=== PATIENT | male | born 1970 | race Two or more races ===

== ENCOUNTER 2016-11-29 16:58 | Emergency (ER) | payer OTHER ==
[2016-11-29 17:04] VITALS: BP 131/86; PULSE 87; RESP 20; TEMP 98.5
--- NOTE | 2016-11-29 17:27 | ED ---
Recheck HPI - General Chief Complaint: Recheck/Abnormal Lab/Rx Stated Complaint: Med refill Time Seen by Provider: 11/29/16 17:18 Source: patient, RN notes reviewed Mode of arrival: ambulatory Limitations: no limitations - History of Present Illness Initial Comments: Patient 46-year-old male who presents emergency room today with chief complaint a medication refill. He does admit that he's recently due to the area and is waiting to see his family doctor does have an appointment later next week and also be seen [facility] the following week after that. States he needs medication for Cipro, Paxil, Xanax. States takes Paxil for depression and Xanax for anxiety. Patient states been out of Xanax longer since has not had a prescription. He denies any other complaints or symptoms. Patient denies any recent fever, chills, shortness of breath, chest pain, back pain, abdominal pain, nausea or vomiting, numbness or tingling, dysuria or hematuria, constipation or diarrhea, headaches or visual changes, or any other complaints. - Related Data Home Medications Medication Instructions Recorded Confirmed ALPRAZolam [Xanax] 0.5 mg PO HS 10/27/16 10/27/16 Albuterol Sulfate [Proair Hfa] 1 - 2 puff INHALATION RT-QID PRN 10/27/16 Budesonide/Formoterol Fumarate 2 puff INHALATION RT-BID 10/27/16 10/27/16 [Symbicort 160-4.5 Mcg Inhaler] Diclofenac Sodium [Voltaren] 75 mg PO BID 10/27/16 10/27/16 Montelukast [Singulair] 10 mg PO HS 10/27/16 10/27/16 PARoxetine [Paxil] 20 mg PO HS 10/27/16 10/27/16 tiZANidine [Zanaflex] 8 mg PO HS 10/27/16 10/27/16 Previous Rx's Medication Instructions Recorded Lisinopril [Prinivil] 20 mg PO HS #30 tablet 10/27/16 ALPRAZolam [Xanax] 0.5 mg PO TID PRN #40 tablet 11/29/16 Lisinopril [Zestril] 20 mg PO DAILY #14 tab 11/29/16 PARoxetine [Paxil] 20 mg PO DAILY #14 tab 11/29/16 Allergies Allergy/AdvReac Type Severity Reaction Status Date / Time No Known Allergies Allergy Verified 11/29/16 17:04 Review of Systems ROS Statement: Those systems with pertinent positive or pertinent negative responses have been documented in the HPI. ROS Other: All systems not noted in ROS Statement are negative. Past Medical History Past Medical History: Hypertension History of Any Multi-Drug Resistant Organisms: None Reported Past Surgical History: Cholecystectomy, Hernia Repair, Orthopedic Surgery Additional Past Surgical History / Comment(s): shoulder knee Past Psychological History: Depression Smoking Status: Never smoker Past Alcohol Use History: Occasional Past Drug Use History: None Reported General Exam - General Exam Comments Initial Comments: General: The patient is awake and alert, in no distress, and does not appear acutely ill. Eye: Pupils are equal, round and reactive to light, extra-ocular movements are intact. No nystagmus. There is normal conjunctiva bilaterally. No signs of icterus. Ears, nose, mouth and throat: There are moist mucous membranes and no oral lesions. Neck: The neck is supple, there is no tenderness or JVD. Cardiovascular: There is a regular rate and rhythm. No murmur, rub or gallop is appreciated. Respiratory: Lungs are clear to auscultation, respirations are non-labored, breath sounds are equal. No wheezes, stridor, rales, or rhonchi. Gastrointestinal: Soft, non-distended, non-tender abdomen without masses or organomegaly noted. There is no rebound or guarding present. No CVA tenderness. Bowel sounds are unremarkable. Musculoskeletal: Normal ROM, no tenderness. Strength 5/5. Sensation intact. Pulses equal bilaterally 2+. Neurological: A&O x 3. CN II-XII intact, There are no obvious motor or sensory deficits. Coordination appears grossly intact. Speech is normal. Skin: Skin is warm and dry and no rashes or lesions are noted. Psychiatric: Cooperative, appropriate mood & affect, normal judgment. Limitations: no limitations Course Vital Signs 11/29/16 17:02 Temperature 98.5 F Pulse Rate 87 Respiratory 20 Rate Blood Pressure 131/86 O2 Sat by Pulse 99 Oximetry Medical Decision Making - Medical Decision Making Please use medication as discussed. Please follow-up with family doctorfor further medications. Please return to emergency room if the symptoms increase or worsen or for any other concerns. Disposition Clinical Impression: Medication refill Disposition: HOME SELF-CARE Condition: Good Instructions: Medicine Refill (ED) Additional Instructions: Please follow-up family doctor as discussed for further medications. Prescriptions: ALPRAZolam [Xanax] 0.5 mg PO TID PRN #40 tablet PRN Reason: Anxiety Lisinopril [Zestril] 20 mg PO DAILY #14 tab PARoxetine [Paxil] 20 mg PO DAILY #14 tab Time of Disposition: 17:23
== END 2016-11-29 17:35 | disposition home or self-care (01) ==
LOC: EC 16:58
DX: Z76.0 Encounter for issue of repeat prescription (principal); F32.9 Major depressive disorder, single episode, unspecified; F41.9 Anxiety disorder, unspecified; Z79.1 Long term (current) use of non-steroidal anti-inflammatories (NSAID); Z79.51 Long term (current) use of inhaled steroids; Z79.899 Other long term (current) drug therapy
CPT/HCPCS: 99282

== ENCOUNTER → 2017-01-12 | Outpatient (CLI) | payer OTHER ==
--- NOTE | 2017-01-12 09:28 | CT ---
EXAMINATION TYPE: CT chest wo con DATE OF EXAM: 01/12/2017 COMPARISON: NONE HISTORY: Pulmonary nodule CT DLP: 824 mGycm. Automated Exposure Control for Dose Reduction was Utilized. TECHNIQUE: CT scan of the thorax is performed without IV contrast. FINDINGS: There is an 8.3 mm calcified pulmonary nodule in the posterior basal segment of the right l ower lobe best seen on image 45. No other parenchymal nodules are seen. There is no significant axillary adenopathy. There is some shotty mediastinal and aortopulmonary wind ow lymph nodes. There is calcified right hilar lymph nodes. There is no pleural or pericardial fluid. The heart is not enlarged. The gallbladder is been removed. Visualized upper abdominal structures are otherwise unremarkable. There is mild hypertrophic spondylosis in the lower dorsal spine. No bony destructive lesion is seen. IMPRESSION: 1. EVIDENCE OF OLD GRANULOMATOUS DISEASE. 2. MINIMAL DEGENERATIVE CHANGE WITHIN THE SPINE.
== END | disposition home or self-care (01) ==
LOC: RADCTMAIN 08:29
PROVIDERS: ATTEND Family Medicine
DX: R91.1 Solitary pulmonary nodule (principal)
CPT/HCPCS: 71250

== ENCOUNTER → 2017-04-18 | Outpatient (CLI) | payer OTHER ==
--- NOTE | 2017-04-18 08:12 | CT ---
EXAMINATION TYPE: CT brain wo con DATE OF EXAM: 04/18/2017 COMPARISON: NONE HISTORY: Encephalopathy CT DLP: 1192.32 mGycm. Automated Exposure Control for Dose Reduction was Utilized. TECHNIQUE: CT scan of the head is performed without contrast. FINDINGS: There is no acute intracranial hemorrhage, mass effect, or midline shift identified. The ventricles and sulci are within normal limits in size. No suspicious extra-axial fluid collection. S cant mucosal thickening is seen within the right ethmoid sinuses. The globes are intact and the remai tiera visualized sinuses are clear. IMPRESSION: No acute intracranial hemorrhage, mass effect, or midline shift is seen. If there is con cern for encephalopathy, MRI with and without contrast is recommended.
--- NOTE | 2017-04-18 08:18 | CT ---
EXAMINATION TYPE: CT abdomen pelvis wo con DATE OF EXAM: 04/18/2017 COMPARISON: NONE HISTORY: Diverticulitis CT DLP: 1132.08 mGycm Automated exposure control for dose reduction was used. TECHNIQUE: Helical acquisition of images was performed from the lung bases through the pelvis withou t intravenous contrast, this limits evaluation of the solid viscera.. FINDINGS: LUNG BASES: Benign calcified right lower lobe 6 mm granuloma is identified. Benign calcified right hi lar lymph node is also seen. Remainder the lung bases are unremarkable. LIVER/GB: Liver is diffusely hypoattenuated, most commonly related the mild hepatic steatosis. This l imits evaluation for hepatic masses. Cholecystectomy clips are seen within the gallbladder fossa. PANCREAS: No significant abnormality is seen. SPLEEN: The spleen is prominent in size in longitudinal dimension approaching criteria for spinal erika amna measuring 13.7 cm, however it is not enlarged in craniocaudal dimension measuring approximately 1 0 cm. ADRENALS: No significant abnormality is seen. KIDNEYS: Unenhanced kidneys are unremarkable in morphology. No nephrolithiasis. FREE AIR: No free air is visualized RETROPERITONEAL ADENOPATHY: Multiple nonenlarged retroperitoneal periaortic lymph nodes are seen. REPRODUCTIVE ORGANS: No significant abnormality is seen. Fat filled left inguinal hernia is noted wit h surgical clips at the right inguinal canal. URINARY BLADDER: No significant abnormality is seen. PELVIC ADENOPATHY: Prominent right external chain iliac lymph node measures 9 mm in short axis howev er a fatty hilum is seen. No superficial inguinal adenopathy. OSSEOUS STRUCTURES: Mild degenerative changes of the thoracolumbar and lumbosacral spine.. BOWEL: Few sigmoid diverticula are appreciated without paracolonic fat stranding. Appendix is contra st and air-filled and within normal limits of size. No evidence of bowel obstruction. OTHER: Small fat filled umbilical hernia is seen with a narrow neck measuring 7 mm. No abutting adjac ent bowel. IMPRESSION: 1. FEW SIGMOID DIVERTICULA WITHOUT PERICOLONIC FAT STRANDING. NO CURRENT EVIDENCE OF DIVERTICULITIS. 2. SMALL FAT FILLED LEFT INGUINAL HERNIA WITH SURGICAL CLIPS IN THE RIGHT INGUINAL REGION WITHOUT REC URRENT HERNIA. 3. HEPATIC STEATOSIS.
== END | disposition home or self-care (01) ==
LOC: RADCTMAIN 07:12
PROVIDERS: ATTEND Family Medicine
DX: K57.30 Diverticulosis of large intestine without perforation or abscess without bleeding (principal); K40.90 Unilateral inguinal hernia, without obstruction or gangrene, not specified as recurrent; K76.0 Fatty (change of) liver, not elsewhere classified
CPT/HCPCS: 70450; 74176